=== PATIENT | male | born 1995 | race Caucasian/White ===

== ENCOUNTER 2017-02-03 00:59 | Emergency (ER) | payer OTHER ==
--- NOTE | 2017-02-03 03:44 | ED ---
Satya Bear Janilya, scribed for Joanne Patterson MD on 02/03/17 at 0157 . Substance Abuse/Use - HPI Summary HPI Summary: A 22 y/o male was brought to [facility] by his girlfriend for EtOH intoxication. Per nurse, his girlfriend said that pt has been drinking since 1400. It is uncertain how much he had to drink. He also felt nauseous and has vomited. - History Of Current Complaint Chief Complaint: EDSubstanceAbuse Stated Complaint: ETOH Time Seen by Provider: 02/03/17 01:55 Hx Obtained From: Other: - [facility] nurse Onset/Duration of Drug/ETOH Abuse: Hours Ingestion History: Type/Name Of Drug - EtOH, Amount Ingested - unknown, Approximate Time Of Ingestion - since 1400 Overdose Characteristics: Oral Timing Of Abuse: Binge Use Severity Initially: Moderate Severity Currently: Moderate Aggravating Factor(s): Nothing Alleviating Factor(s): Nothing PMH/Surg Hx/FS Hx/Imm Hx Previously Healthy: Yes Cardiovascular History: Denies: Hx Aneurysm Infectious Disease History: No Infectious Disease History: Denies: Traveled Outside the [place] in Last 30 Days - Family History Known Family History: Negative: Hypertension - Social History Occupation: Student Alcohol Use: Weekly Substance Use Type: Reports: Marijuana Smoking Status (MU): Never Smoked Tobacco Review of Systems Positive: Vomiting, Nausea Psychological: Other - intoxicated All Other Systems Reviewed And Are Negative: Yes Physical Exam Triage Information Reviewed: Yes Vital Signs On Initial Exam: Initial Vitals Temp Pulse Resp BP Pulse Ox 96.4 F 100 16 107/70 100 02/03/17 01:05 02/03/17 01:05 02/03/17 01:05 02/03/17 01:05 02/03/17 01:05 Vital Signs Reviewed: Yes Appearance: Positive: Well-Appearing - Pt is sleeping comfortably., No Pain Distress Skin: Positive: Warm, Skin Color Reflects Adequate Perfusion Eyes: Positive: EOMI, MAC ENT: Positive: Pharynx normal, TMs normal Neck: Positive: Supple, Nontender Respiratory/Lung Sounds: Positive: Clear to Auscultation, Breath Sounds Present. Negative: Rales, Rhonchi, Wheezes Cardiovascular: Positive: RRR. Negative: Murmur, Rub, Other - no gallops Abdomen Description: Positive: Nontender, Soft. Negative: Distended, Guarding, Other: - no rebound Bowel Sounds: Positive: Present Musculoskeletal: Positive: Strength/ROM Intact. Negative: Edema Left, Edema Right Neurological: Positive: Sensory/Motor Intact, Alert, Oriented to Person Place, Time, CN Intact II-III Psychiatric: Positive: Affect/Mood Appropriate Diagnostics - Vital Signs Vital Signs Temp Pulse Resp BP Pulse Ox 02/03/17 01:05 96.4 F 100 16 107/70 100 - Laboratory Lab Statement: Any lab studies that have been ordered have been reviewed, and results considered in the medical decision making process. Course/Dx - Course Course Of Treatment: 22 yo male came in with alcohol and nausea. once awake with normal gait he will be ok to go - Diagnoses Provider Diagnoses: Alcohol intoxication Discharge - Discharge Plan Condition: Stable Disposition: HOME Patient Education Materials: Alcohol Intoxication (ED) Referrals: [facility] [Outside] - 2 Days The documentation as recorded by the Satya quarles Janilya accurately reflects the service I personally performed and the decisions made by me, Joanne Patterson MD.
[2017-02-03 05:31] VITALS: BP 123/57
== END 2017-02-03 05:30 | disposition home or self-care (01) ==
LOC: ED 00:59
DX: F10.129 Alcohol abuse with intoxication, unspecified (principal)
CPT/HCPCS: 99283